=== PATIENT | female | born 1985 | race African-American/Black ===

== ENCOUNTER 2018-11-25 23:34 | Inpatient (IN) ==
[2018-11-25] MEDS ORDERED: NS 1,000 ML IV PRN (23:54)
[2018-11-26 00:27] LABS: INR 0.86; PROTIME 12.2 Seconds (11.0-16.0)
[2018-11-26 00:28] LABS: PTT 24.2 Seconds (22.3-41.8)
[2018-11-26 00:32] LABS: ESTIMATED GFR > 60
[2018-11-26 00:48] LABS: AGAP 12; ALBUMIN 3.9 g/dL (3.5-5.0); ALKALINE PHOSPHATASE 110 U/L (32-104); BUN 9 mg/dL (8-22); CHLORIDE 96 mmol/L (98-107); COSMO 289; CREATININE 0.9 mg/dL (0.5-0.9); GOT 33 U/L (10-30); GPT 15 U/L (10-36); POTASSIUM 5.6 mmol/L (3.5-5.1); SODIUM 131 mmol/L (136-145); TCO2 23 mmol/L (25-35); TOTAL PROTEIN 7.2 g/dL (6.3-8.3)
[2018-11-26 00:49] LABS: GLUCOSE 601 mg/dL (70-104)
[2018-11-26 01:00] LABS: BASO# 0.02 X1000 (0.0-0.2); BASO% 0.4 % (0.0-0.8); EOS% 2.2 % (0.0-10.0); HEMATOCRIT 35.3 % (37.0-47.0); HEMOGLOBIN 12.1 g/dL (12.0-16.0); IMM GRAN# 0.01 X1000 (0.0-0.04); IMM GRAN% 0.2 % (0.0-0.5); LYMPH# 2.09 X1000 (1.2-3.4); LYMPH% 46.4 % (20.5-51.1); MCH 27.3 PG (27-31); MCHC 34.3 g/dL (33-37); MCV 79.7 FL (81-99); MONO% 8.9 % (1.7-9.3); MPV 10.6 FL (7.4-10.4); NEUT# 1.88 X1000 (1.4-6.5); NEUT% 41.9 % (42.2-75.2); PLT 265 X1000 (130-400); RBC 4.43 XMIL (4.2-5.4)
[2018-11-26] MEDS ORDERED: NS 1,000 ML IV ONE (01:51)
[2018-11-26] MEDS ORDERED: HUMULIN R IV ONE (01:52)
--- NOTE | 2018-11-26 03:35 | PROVIDER DOCUMENTATION ---
This chart was entered by Fawn Turner Scribe, acting as scribe for Thong Mccarthy MD. HPI-General Adult - General Chief Complaint: Stroke-Like Symptoms Stated Complaint: STROKE LIKE SX Time Seen by Provider: 11/26/18 01:31 Source: patient Allergies/Adverse Reactions: Patient Allergies Allergy/AdvReac Type Severity Reaction Status Date / Time No Known Allergies Allergy Verified 03/17/18 22:03 Home Medications: Home Medication List Medication Instructions Recorded Confirmed Last Taken Type Escitalopram [Lexapro] 10 mg PO QHS #120 tab 02/20/18 11/25/18 Unknown Rx Gabapentin [Neurontin] 200 mg PO BID #120 cap 02/20/18 11/25/18 Unknown Rx Metformin [Glucophage] 500 mg PO BID CC #240 tab 02/20/18 11/25/18 Unknown Rx Topiramate [Topamax] 25 mg PO BID #120 tab 02/20/18 11/25/18 Unknown Rx - History of Present Illness -Gen Adult Nature of Presenting Problems: Pt is 33/F presenting to ED after having blurred vision, trouble w/ speech, dizziness and light sensitivity, this all began around 21:15 today. Pt has hx of IDDM, recently was taken off of injections and put on metformin. Location of Pain/Injury: reports: none Quality of Pain: reports: none Severity: reports: moderate Onset/Duration: reports: just prior to arrival Timing: reports: still present Context/Activities at Onset: reports: light activity Modifying Factors: improves with: nothing Associated Symptoms: reports: dizziness. denies: fever/chills, headaches, nausea, shortness of breath, vomiting Similar Symptoms Previously?: No Recently seen or treated by another doctor?: No - Diabetes Related Context Context: reports: high blood sugar (600+) Review of Systems - Adult - REVIEW OF SYSTEMS - ADULT Constitutional: reports: no symptoms reported. denies: chills, fever Eyes: reports: no symptoms reported Ears, Nose, Mouth & Throat: reports: no symptoms reported Cardiovascular: denies: chest pain, edema Respiratory: reports: no symptoms reported Gastrointestinal: reports: no symptoms reported. denies: abdominal pain, diarrhea, nausea, vomiting Genitourinary: reports: no symptoms reported Musculoskeletal: reports: no symptoms reported Integumentary: reports: no symptoms reported Neurological: reports: no symptoms reported. denies: dizziness/vertigo, headache/migraines Psychiatric: reports: no symptoms reported Endocrine: reports: no symptoms reported Hematologic/Lymphatic: reports: no symptoms reported Allergic/Immunologic: reports: no symptoms reported All Other Systems: Reviewed and Negative Past History - Adult - PAST MEDICAL HISTORY-ADULT Review of Records: reports: Old Records Reviewed, Nursing Assessment Review, Medications Reviewed, Social history reviewed & non-contributory. Major Childhood Illnesses: reports: denies history Cardiovascular: reports: HTN Respiratory: reports: denies history Gastrointestinal: reports: other (ulcers) Obstetrical/Gynecological: reports: denies history Genitourinary: reports: denies history Musculoskeletal: reports: denies history Neurological: reports: denies history Endocrine/Immune: reports: Diabetes Other Conditions: reports: denies history - PRIOR SURGERIES/PROCEDURES Surgical/Procedure History: reports: reviewed, not pertinent - IMMUNIZATION STATUS Childhood Immunizations: See Nurse Assessment Flu Vaccine: See Nurse Assessment - FAMILY HISTORY Family History: reviewed, not pertinent - SOCIAL HISTORY Smoking: denies, non-smoker Substance Use: none/never Alcohol Use Frequency: never Living Situation: family Physical Exam-General - PHYSICAL EXAM-ADULT Initial Vital Signs Reviewed: Yes - CONSTITUTIONAL General Appearance: appears well, alert, no apparent distress - EYES Eyes: PERRL/EOMI - HEAD, EARS, NOSE, MOUTH & THROAT HENMT: normocephalic/atraumatic, moist mucous membranes, normal ENT inspection, TMs normal, pharynx normal - NECK Neck: non-tender, full range of motion, supple, normal inspection - RESPIRATORY Respiratory: lungs clear - CARDIOVASCULAR Cardiovascular: regular rate, rhythm - GASTROINTESTINAL (ABDOMEN) Abdominal Exam: normal bowel sounds, non tender, soft - LYMPHATIC Lymphatic: no adenopathy - MUSCULOSKELETAL Back Exam: normal inspection Extremity: non-tender - SKIN Integumentary: normal color, warm/dry - NEUROLOGIC Neurologic: grossly normal - PSYCHIATRIC Psych/Mental Status: normal mood/affect, normal thought content, normal thought process, oriented x 3 Progress - PLAN OF CARE/RESULTS Progress/Plan/Lab Results: Vital Signs - 8 hr 11/25/18 23:43 Temperature 99.0 F Pulse Rate 84 Respiratory Rate 18 Blood Pressure 143/96 O2 Sat by Pulse Oximetry 91 L Laboratory Results - last 24 hr 11/25/18 11/25/18 11/25/18 00:03 00:03 00:03 WBC 4.50 L RBC 4.43 Hgb 12.1 Hct 35.3 L MCV 79.7 L MCH 27.3 MCHC 34.3 RDW Std Deviation 12.0 Plt Count 265 MPV 10.6 H Immature Gran % (Auto) 0.2 Neut % (Auto) 41.9 L Lymph % (Auto) 46.4 [place] % (Auto) 8.9 Eos % (Auto) 2.2 Baso % (Auto) 0.4 Immature Gran # (Auto) 0.01 Neut # (Auto) 1.88 Lymph # (Auto) 2.09 [place] # (Auto) 0.40 Eos # (Auto) 0.10 Baso # (Auto) 0.02 PT INR PTT (Actin FS) Sodium 131 L Potassium 5.6 H Chloride 96 L Carbon Dioxide 23 L Anion Gap 12 BUN 9 Creatinine 0.9 Estimated GFR/1.73 m2 > 60 BUN/Creatinine Ratio 10 Glucose 601 H* POC Glucose Calculated Osmolality 289 Calcium 9.0 Total Bilirubin 0.40 AST 33 H ALT 15 Alkaline Phosphatase 110 H Troponin T < 0.010 Total Protein 7.2 Albumin 3.9 Globulin 3.0 Albumin/Globulin Ratio 1.0 11/25/18 11/26/18 00:03 00:00 WBC RBC Hgb Hct MCV MCH MCHC RDW Std Deviation Plt Count MPV Immature Gran % (Auto) Neut % (Auto) Lymph % (Auto) [place] % (Auto) Eos % (Auto) Baso % (Auto) Immature Gran # (Auto) Neut # (Auto) Lymph # (Auto) [place] # (Auto) Eos # (Auto) Baso # (Auto) PT 12.2 INR 0.86 PTT (Actin FS) 24.2 Sodium Potassium Chloride Carbon Dioxide Anion Gap BUN Creatinine Estimated GFR/1.73 m2 BUN/Creatinine Ratio Glucose POC Glucose 500 H D Calculated Osmolality Calcium Total Bilirubin AST ALT Alkaline Phosphatase Troponin T Total Protein Albumin Globulin Albumin/Globulin Ratio Orders Category Date Time Status Cardiac Monitoring DIRECTED Care 11/25/18 23:54 Active Finger Stick Blood Sugar (ED) DIRECTED Care 11/25/18 23:54 Active Misc. NRSG Communication Order DIRECTED Care 11/25/18 23:54 Active Oxygen Therapy- ED Nursing DIRECTED Care 11/25/18 23:54 Active Saline Loc NOW Care 11/25/18 23:54 Active CHEST-PORTABLE [RAD] Stat Exams 11/25/18 23:[address] HEAD W/O CONTRAST [CT] Stat Exams 11/25/18 23:54 Taken CBC WITH ELECTRONIC DIFF [HEME] Stat Lab 11/25/18 00:03 Completed COMPREHENSIVE METABOLIC PANEL [CHEM] Stat Lab 11/25/18 00:03 Completed PROTIME WITH INR [COAG] Stat Lab 11/25/18 00:03 Completed PTT [COAG] Stat Lab 11/25/18 00:03 Completed TROPONIN T Stat Lab 11/25/18 00:03 Completed 0.9% Sodium Chloride Inj [Ns] 1,000 ml Med 11/25/18 23:54 Discontinued IV 100 mls/hr 0.9% Sodium Chloride Inj [Ns] 1,000 ml Med 11/26/18 01:51 Active IV 999 mls/hr Insulin Human Regular [Humulin R] Med 11/26/18 01:52 Discontinued 8 unit IV NOW ONE EKG [EKG] Stat Ther 11/25/18 23:54 Ordered Result Diagrams: 11/25/18 00:03 11/25/18 00:03 Departure - Departure Date of Disposition Decision: 11/26/18 Time of Disposition Decision: 03:34 DIAGNOSIS: Hyperglycemia Disposition: ADMITTED INPATIENT 09 Certified Medical Emergency: Emergent Condition: Poor Referrals and Follow-Ups: None,PCP [Primary Care Provider] - - Critical Care Note This patient required my direct & personal management of CC.: No Attestation - Physician/ BREN Attestation Patient care was provided by Advanced Practice Provider:: No The physician spent face to face time with patient:: Yes Advanced Practice Provider documentation review:: Supervising physician onsite and consulted in the evaluation and care of this patient. The physician did have a face to face encounter with the patient. This chart was documented by the indicated scribe, (Fawn Turner Scribe) and accurately reflects the services I performed and decisions made by me, Thong Plata MD, as attested by the provider's signature.
[2018-11-26] MEDS: MORPHINE IV PRN ×2 (04:37→15:49)
[2018-11-26] MEDS ORDERED: HUMULIN R (PARKWAY) IV SCH (06:37)
--- NOTE | 2018-11-26 07:38 | Diag Imaging Result Doc PS360 ---
EXAM: CHEST-PORTABLE 11/25/2018 HISTORY: poss stroke TECHNIQUE: Erect AP portable at 1220 COMMENT: There is no evidence of acute cardiac or pulmonary disease. Compared to 02/18/2018 there has been no significant change. IMPRESSION: No acute disease. Electronically signed by Urban Nieves 11/26/2018 7:36 AM
--- NOTE | 2018-11-26 07:59 | Diag Imaging Result Doc PS360 ---
EXAM: CT HEAD W/O CONTRAST 11/25/2018 HISTORY: poss stroke TECHNIQUE: This exam was performed using automated exposure control, adjustment of mA or kV according to patient size, and/or use of iterative reconstruction technique. COMMENT: The current examination is compared with 02/18/2018. There is no evidence of mass effect, bleed, or abnormal extra-axial fluid collection. There is some calcification in the right globus pallidus. This was also present at the time the previous study. The calvarium is intact. The visualized paranasal sinuses are clear. IMPRESSION: No evidence of acute intracranial disease. Electronically signed by Urban Nieves 11/26/2018 7:56 AM
[2018-11-26] MEDS ORDERED: INSULIN PEN NEEDLES MISC PRN (08:16)
--- NOTE | 2018-11-26 08:28 | EKG Report ---
Test Performed on : 11/26/2018 00:40:33 AM Test Reason : possible stroke Blood Pressure : / mmHG Vent. Rate : 061 BPM Atrial Rate : 061 BPM P-R Int : 162 ms QRS Dur : 078 ms QT Int : 408 ms P-R-T Axes : 059 017 022 degrees QTc Int : 410 ms Normal sinus rhythm. Nonspecific T wave abnormality Abnormal ECG When compared with ECG of 18-FEB-2018 07:31, No significant change was found Unconfirmed Result
[2018-11-26] MEDS ORDERED: BASAGLAR SUBQ SCH (09:00)
[2018-11-26] MEDS: NEURONTIN PO SCH ×2 (09:24→21:37)
[2018-11-26] MEDS: TOPAMAX PO SCH ×2 (09:24→21:37)
[2018-11-26 09:31] LABS: HEMATOCRIT 36.3 % (37.0-47.0); HEMOGLOBIN 12.1 g/dL (12.0-16.0); MCH 26.8 PG (27-31); MCHC 33.3 g/dL (33-37); MCV 80.5 FL (81-99); MPV 10.3 FL (7.4-10.4); RBC 4.51 XMIL (4.2-5.4); RDW 12.2 % (11.5-14.5); WBC 6.55 X1000 (4.8-10.8)
[2018-11-26 09:43] LABS: HEMOGLOBIN A1C 16.4 % (4.8-6.0)
[2018-11-26 10:22] LABS: AGAP 10; ALBUMIN 3.5 g/dL (3.5-5.0); ALKALINE PHOSPHATASE 77 U/L (32-104); BUN 9 mg/dL (8-22); CALCIUM 8.3 mg/dL (8.8-10.2); CHLORIDE 106 mmol/L (98-107); COSMO 281; CREATININE 0.7 mg/dL (0.5-0.9); ESTIMATED GFR > 60; GLUCOSE 259 mg/dL (70-104); GOT 12 U/L (10-30); GPT 12 U/L (10-36); POTASSIUM 4.3 mmol/L (3.5-5.1); SODIUM 137 mmol/L (136-145); TCO2 21 mmol/L (25-35); TOTAL PROTEIN 6.4 g/dL (6.3-8.3)
[2018-11-26] MEDS: HUMALOG (PARKWAY) SUBQ SCH ×3 (12:35→21:37)
--- NOTE | 2018-11-26 17:48 | HISTORY AND PHYSICAL ---
CHIEF COMPLAINT: Blurred vision, trouble speaking, dizziness. HISTORY OF PRESENT ILLNESS: This is a 33-year-old female with a prior history of diabetes mellitus and hypertension. She presents to the emergency room complaining of blurred vision, photophobia and "an unbalanced feeling." She stated this started about 4-5 hours prior to presentation to the emergency room. She could find no exacerbating or alleviating symptoms. She was found to have a blood sugar of 601. The patient has been on insulin in the past she reports for many years. She reports that her primary care physician told her she did not need insulin and discontinued it and placed her only on Glucophage. Of note, hemoglobin A1c is 16. PAST MEDICAL HISTORY: 1. Diabetes mellitus. 2. Hypertension. PAST SURGICAL HISTORY: Cataract removal, laser eye surgery. SOCIAL HISTORY: She denies alcohol, tobacco or illicit drug use. ALLERGIES: No known drug allergies. HOME MEDICATIONS: A list will be obtained by the nursing staff. Once verified will review and restart as appropriate. REVIEW OF SYSTEMS: Discussed with the patient with pertinent positives stated in the HPI. She denied any syncope, chest pain, palpitations, shortness of breath, cough, fever, chills, PND, orthopnea, any nausea, vomiting, diarrhea, constipation, any black or bloody vomitus or stools, hematuria, dysuria, frequency, urgency. PHYSICAL EXAMINATION: GENERAL: This is a 33-year-old female who is sitting up in the bed in no distress. VITAL SIGNS: Blood pressure is 123/80, heart rate of 62, respirations are 20, temperature is 98.4 degrees with room air saturations 100%. HEENT: Pupils are equal, round, react to light. EOMs are intact. Sclerae are anicteric. Head is normocephalic, atraumatic. Mucous membranes are moist. NECK: Supple with trachea midline. CARDIOVASCULAR: Regular rate and rhythm. S1 and S2 are appreciated. She has no lower extremity edema. Calves are nontender. Peripheral pulses are palpable x4 extremities. PULMONARY: Breath sounds are clear with no increased work of breathing noted. Chest rises and falls symmetric with respiration. Chest wall is nontender to palpation. GASTROINTESTINAL: Abdomen soft, nontender, nondistended with bowel sounds in all 4 quadrants. : She has no CVAT nor suprapubic tenderness. SKIN: Warm and dry. NEUROLOGIC: She is alert, oriented x3 with cranial nerves 2-12 grossly intact. DIAGNOSTICS: WBC is 4.5 with a hemoglobin 12.1, hematocrit 35.3 and platelets of 265,000. Sodium 131, potassium 5.6, BUN 9, creatinine 0.9 with a glucose of 601. Chest x-ray revealed no acute disease. CT of the head with no evidence of acute intracranial disease. ASSESSMENT AND PLAN: 1. Diabetes mellitus with hyperglycemia. 2. Uncontrolled Diabetes Mellitis 2 3. Hyponatremia. 4. Hyperkalemia. 5. Hypertension. PLAN: The patient has been admitted to the medical-surgical floor, placed on telemetry which will continue. She will be placed on a diabetic diet with fingerstick blood sugars a.c. and at bedtime with sliding scale insulin, will obtain a C-peptide. Further treatments pending hospital course. Dictated by SHAHIDA Marroquin for Mekhi Vieira MD This chart was documented by, SHAHIDA Marroquin and accurately reflects the services performed, treatment plan and medical decisions as attested by the providers signature Mekhi Vieira MD. cc: SHAHIDA Marroquin MD MTDD
[2018-11-26] MEDS ORDERED: LEXAPRO PO SCH (21:00)
--- NOTE | 2018-11-26 23:55 | HISTORY AND PHYSICAL ---
ADDENDUM: Patient seen and examined by myself. Full note dictated and discussed with nurse practitioner. Patient presented to the ER with some neurologic symptoms that appear to have resolved. Upon further testing, her blood sugars were markedly elevated. Her A1c is around 16. She notes that she was told to stop her insulin which she had been on for years and was placed on Glucophage only. Unsure of how this transpired or if she is followed up to check her blood sugars. Discussed with her that Glucophage alone is clearly not enough medication for her. We will watch her overnight. A C-peptide has been done although not resulted to see if she is making any insulin. Otherwise, she will be discharged home on insulin. cc: Mekhi Vieira MD
[2018-11-27 06:04] LABS: HEMATOCRIT 37.1 % (37.0-47.0); HEMOGLOBIN 12.3 g/dL (12.0-16.0); MCHC 33.2 g/dL (33-37); MCV 81.5 FL (81-99); MPV 10.5 FL (7.4-10.4); RBC 4.55 XMIL (4.2-5.4); RDW 12.5 % (11.5-14.5); WBC 5.64 X1000 (4.8-10.8)
[2018-11-27] MEDS: HUMALOG (PARKWAY) SUBQ SCH ×2 (06:14→12:54)
[2018-11-27 06:50] LABS: AGAP 12; ALBUMIN 3.2 g/dL (3.5-5.0); ALKALINE PHOSPHATASE 69 U/L (32-104); BUN 12 mg/dL (8-22); CALCIUM 8.2 mg/dL (8.8-10.2); CHLORIDE 106 mmol/L (98-107); COSMO 289; CREATININE 0.8 mg/dL (0.5-0.9); ESTIMATED GFR > 60; GLUCOSE 267 mg/dL (70-104); GOT 11 U/L (10-30); GPT 11 U/L (10-36); POTASSIUM 4.3 mmol/L (3.5-5.1); SODIUM 140 mmol/L (136-145); TCO2 22 mmol/L (25-35)
[2018-11-27] MEDS: TOPAMAX PO SCH (08:49)
[2018-11-27] MEDS: NEURONTIN PO SCH (08:49)
[2018-11-27] MEDS ORDERED: BASAGLAR SUBQ SCH (09:00)
[2018-11-27 11:37] VITALS: BP 124/77
--- NOTE | 2018-11-27 12:31 | DISCHARGE SUMMARY ---
ADMISSION DATE: 11/26/2018 DISCHARGE DATE: 11/27/2018 DIAGNOSES: 1. Diabetes with hyperglycemia. 2. Uncontrolled diabetes mellitus. 3. Hyponatremia, resolved. 4. Hyperkalemia, resolved. 5. Hypertension. DIAGNOSTICS: 1. Chest x-ray revealed no acute disease. 2. CT of the head without contrast revealed no evidence of acute intracranial disease. HOSPITAL COURSE: Ms. Cortez presented to the emergency room complaining of an unbalanced feeling, as well as blurred vision and photophobia. She was found to have a blood sugar of 601. She reported that she had been told to stop her insulin in the past by a physician who had placed her only on Glucophage. We are unsure how this transpired or if she has followed up to check her blood sugars. She was found to have a blood sugar of 601. We treated her with sliding scale insulin every 4 hours as well as giving 10 units of Lantus last night on admission and 10 this morning. Blood sugars have since been in the 184 to it looks like 270 range. She states her symptoms are gone, and she feels better than she has in a while. Of note, her hemoglobin A1c was 16.4. DISCHARGE PHYSICAL EXAMINATION: Vital signs: Blood pressure is 124/77 with a heart rate of 63, respirations 18, temperature 98.3 degrees oral with room air saturation 100%. Cardiovascular: Regular rate and rhythm. S1 and S2 appreciated. Pulmonary: Breath sounds are clear with no increased work of breathing noted. Gastrointestinal: Abdomen is soft, nontender, nondistended with bowel sounds in all 4 quadrants. Neurologic: She is alert and oriented x3. Skin: Warm and dry. DISCHARGE MEDICATIONS: 1. Lexapro 10 mg p.o. at bedtime. 2. Neurontin 200 mg p.o. b.i.d. 3. Glargine insulin to 20 units subcutaneous q.a.m. 4. Glucophage 500 mg p.o. b.i.d. 5. Topamax 25 mg p.o. b.i.d. FOLLOW-UP: She was instructed follow up with her primary care provider in the next 1 to 2 weeks. She was instructed to call Wednesday to schedule an appointment. OTHER DISCHARGE INSTRUCTIONS: She has been instructed to return to the ER or call to be seen sooner for any syncope, dizziness, chest pain, palpitations, nausea/vomiting, diarrhea, constipation, any black or bloody vomitus or stools, or for any hematuria, dysuria, frequency, urgency, or for any questions or concerns that she may have. DISPOSITION: She is being discharged home in stable condition with family members. COORDINATION TIME: This is a greater than 30 minute discharge. Dictated by SHAHIDA Marroquin for Mekhi Vieira MD This chart was documented by, SHAHIDA Marroquin and accurately reflects the services performed, treatment plan and medical decisions as attested by the providers signature Mekhi Vieira MD. cc: SHAHIDA Marroquin MD
--- NOTE | 2018-11-27 14:58 | DISCHARGE SUMMARY ---
ADMISSION DATE: 11/26/2018 DISCHARGE DATE: 11/27/2018 DISCHARGE DIAGNOSES: 1. Diabetes with extremely poor home control with an A1c of 16. Uncertain if she has insulin- dependent diabetes. C-peptide is still pending. 2. Hypertension. 3. Blurry vision, resolved. 4. Blood sugars have been improved. 5. Hyponatremia, resolved. 6. Hyperkalemia, resolved. CONSULTATIONS: None. PROCEDURES: None. BRIEF HOSPITAL COURSE: The patient is a 33-year-old female who presented to [facility] secondary to blurry vision, confusion. She was noted to have a markedly elevated blood sugar. Upon further lab values, her A1c was also markedly elevated at 16. The patient states that she had been on insulin, but here recently she had stopped her insulin and has just been on Glucophage. I am unclear as to the reasoning behind this. Unfortunately, Glucophage alone is obviously not enough to control her blood sugars as her A1c is currently 16. She was admitted to the hospital, given several liters of IV fluid bolus which she tolerated very well. She was also given Lantus injection at 10 units followed by 20 units the next day. Blood sugars on discharge were mid 200s. She was feeling better. Blurry vision was resolved. All of her neurologic symptoms have improved and she will be discharged home. DISPOSITION: Patient will be discharged home. She will follow up outpatient with primary care of her choice. Discussed with her that she needs to stay on insulin until her C-peptide returns. If this value is normal, then she can transition to pills. If C-peptide is extremely low, she should be considered to be insulin-dependent diabetes and at that point, would need to stay on insulin. Patient is aware. TIME SPENT: Greater 30 minutes were spent in total care. cc: Mekhi Vieira MD
== END 2018-11-27 15:51 | disposition home or self-care (01) | DRG 638 ==
LOC: P.ED 23:34 → P.MEDSURG 11-26 06:32
PROVIDERS: ATTEND Family Medicine
CPT/HCPCS: 70450; 71010; 71045; 80053; 82948; 83036; 84484; 84681; 85025; 85027; 85610; 85730; 93005; 96374; 99285; A9270; J1815; J2270; J7030; XXXXX